=== PATIENT | male | born 1945 | race Caucasian/White ===

== ENCOUNTER → 2018-12-16 08:12 | Outpatient (CLI) | payer MEDICARE, OTHER ==
[~2018-12-16 08:12] MED LIST: ADALAT CC90 MG PO; BAYER CHEWABLE81 MG PO; COZAAR100 MG PO; FENOFIBRATE160 MG PO; HYDROCHLOROTHIA25 MG PO; LEVOTHYROXINE175 MCG PO; METOPROLOL TART50 MG PO; PAROXETINE HCL10 MG PO; PLAVIX75 MG PO
--- NOTE | 2018-12-23 11:18 | ST ---
PATIENT:JJ WASHINGTON MEDICAL RECORD: [id number] SEX: M LOCATION:[facility] ORDER #: ADMISSION DATE: 12/16/18 AGE OF PATIENT: 73 REFERRING PHYSICIAN: INTERPRETING PHYSICIAN: KATE SIDDIQI MD DATE OF SERVICE: 12/16/2018 PROCEDURE: Nuclear stress test. INDICATION: Angina, shortness of breath, hypertension and hyperlipidemia. He was exercised on standard Rom protocol for 7 minutes 30 seconds achieving greater than 85% max target heart rate response with 33 mCi of sestamibi injected at peak stress, 10 mCi were used previously for rest images. FINDINGS: Gated SPECT reveals preserved ejection fraction at 60% with decreased thickening and brightening throughout the inferior segments. SPECT imaging Cardiolite was used as a myocardial perfusion agent. There is a mixed perfusion defect inferiorly, partially fixed, partially reversible includes the basal, mid, apical inferior segments. There is reversibility throughout the entire defect. OVERALL IMPRESSION: 1. This is an abnormal nuclear stress test with a mixed perfusion defect, partially fixed, partially reversible throughout the inferior segments. 2. Gated SPECT reveals a preserved ejection fraction at 60% in this patient with ongoing symptomatology, the current scan does suggest the presence of hemodynamically significant coronary artery disease. We will proceed with coronary angiography as followup study. TRANSINT:[id number] Voice Confirmation ID: [id number] DOCUMENT ID: [id number] KATE SIDDIQI MD at 1118 CC: [id number] DICTATION DATE: 12/16/18 1633 FIRER ELECTRIC LOCOMOTIVE: 12/17/18 0514 DEP CLI 12/16/18 [place] [address]
[2018-12-24 08:29] VITALS: BMI 28.6
== END | disposition home or self-care (01) ==
LOC: D.HCCARDIO 08:12
DX: I20.9 Angina pectoris, unspecified (principal)

== ENCOUNTER 2018-12-24 08:02 | Outpatient (CLI) | payer MEDICARE, OTHER ==
[~2018-12-24] VITALS: Ht 180.3 cm; Wt 93.2 kg
--- NOTE | ~2018-12-24 | HEMODYNAMI ---
PATIENT:JJ WASHINGTON MEDICAL RECORD: [id number] : 43 LOCATION:[facility] ADMISSION DATE: 12/24/18 Generatedon:12/24/20189:59 Patient name: JJ WASHINGTON Patient #: [id number] SSN: : 1945 Date of study: 12/24/2018 Page: Of Hemodynamic Procedure Report Patient Data Patient Demographics Procedure consent was obtained First Name: JJ Gender: Male Last Name: FELIX : 1945 Patient #: [id number] Age: 73 year(s) Race: Unknown Additional ID: [id number] Contact details Address: [address] [place] [address] ROAD State: [place] City: [place] Zip code: [address] Past Medical History Allergies: No known allergies Admission Admission Data Admission Date: 12/24/2018 Admission Time: 8:02 Procedure Procedure Types Cath Procedure Diagnostic Procedure LHC LHC w/Coronaries FFR/IVUS Intra-Coronary IVUS Initial Sedation Charges Moderate Sedation up to 15 minutes PCI Procedure Coronary Stent Coronary Stent Initial x2 Procedure Description Procedure Date Procedure Date: 12/24/2018 Procedure Start Time: 9:35 Procedure End Time: 9:58 Procedure Staff Name Function Leobardo Yeung MD Performing Physician Tereza Rod RT Monitor Juan Royal RN Nurse Jose Luis Woods RN Stone Sandblaster Efrain Perez RT Scrub Procedure Data Cath Procedure Fluoroscopy Diagnostic fluoroscopy Total fluoroscopy Time: 4.4 time: 4.4 min min Diagnostic fluoroscopy Total fluoroscopy dose: 775 dose: 775 mGy mGy Contrast Material Contrast Material Type Amount (ml) Isovue 300 120 Entry Location Entry Primary Successful Side Size Upsize Upsize Entry Closure Succes sful Closure Location (Fr) 1 (Fr) 2 (Fr) Remarks Device Remarks Femoral Right 5 Fr 6 Fr Exoseal artery Short Estimated blood loss: 10 ml Diagnostic catheters Device Type Used For End Catheter Placement MULTIPACK Pigtail 5 Fr LV Angiography catheter MULTIPACK JL 4.0 5Fr Left Coronary catheter Angiography MULTIPACK 3DRC 5Fr Right Coronary catheter Angiography Procedure Complications No complications Procedure Medications Medication Administration Route Dosage Oxygen etCO2 Nasal cannula 2 l/min Lidocaine 2% added to field 20 Heparin Flush Bag added to field 2 bags (1000units/500ml NS) 0.9% NaCl I.V. 100 ml/hr Versed I.V. 1 mg Fentanyl I.V. 50 mcg Versed I.V. 1 mg Fentanyl I.V. 50 mcg 0.9% NaCl I.V. bolus 250 ml Heparin Bolus I.V. 4000 units Integrilin (Bolus I.V. 8.5 ml 2mg/ml) Plavix P.O. 600 mg Hemodynamics Rest Heart Rate: 52 (bpm) Snapshots Pre Cath Intra NCS Post Cath Vital Signs Time Heart Resp SPO2 etCO2 NIBP (mmHg) Rhythm Pain Sedation Rate (ipm) (%) (mmHg) Status Level (bpm) 9:12:17 54 25 98 39.8 144/74(122) SB 0 (11) 10(A) , No pain 9:16:37 53 11 95 44.4 124/63(96) SB 0 (11) 10(A) , No pain 9:20:45 50 11 93 41.4 90/56(76) SB 0 (11) 10(A) , No pain 9:24:53 48 10 94 42.8 93/54(81) SB 0 (11) 10(A) , No pain 9:29:02 47 10 95 42.9 91/53(74) SB 0 (11) 10(A) , No pain 9:33:14 43 11 95 45.9 88/40(63) SB 0 (11) 10(A) , No pain 9:37:24 48 14 95 39.8 81/42(60) SB 0 (11) 9(A) , No pain 9:41:30 46 13 93 39.8 82/47(72) SB 0 (11) 9(A) , No pain 9:45:38 45 14 94 36 77/44(65) SB 0 (11) 9(A) , No pain 9:49:46 46 12 93 39.1 79/37(72) SB 0 (11) 9(A) , No pain 9:53:53 47 14 94 40.6 85/50(0) SB 0 (11) 10(A) , No pain 9:58:01 46 9 94 40.6 89/49(68) SB 0 (11) 10(A) , No pain Medications Time Medication Route Dose Verified Delivered Reason Notes Effectiveness by by 9:10:44 Oxygen etCO2 2 Leoabrdo Kwabenaie used for Nasal l/min Gamal Royal RN procedure cannula 9:10:51 Lidocaine 2% added 20ml Leobardo Booth for local to vial Gamal Yeung MD anesthetic field 9:10:56 Heparin Flush added 2 Leobardo Leobardo used for Bag to bags Gamal Yeung MD procedure (1000units/500ml field NS) 9:11:04 0.9% NaCl I.V. 100 Leobardo Buffie Per physician ml/hr Gamal Royal RN 9:32:28 Versed I.V. 1 mg Leobardo Yuanie for sedation Gamal Royal RN 9:32:33 Fentanyl I.V. 50 Loebardo Buffie for sedation mcg Gamal Royal RN 9:36:51 Versed I.V. 1 mg Leobardo Yuanie for sedation Gamal Royal RN 9:36:55 Fentanyl I.V. 50 Leobardo Buffie for sedation mcg Gamal Royal RN 9:37:29 0.9% NaCl I.V. 250 Leobardo Yuanie Per physician bolus ml Gamal Royla RN 9:45:07 Heparin Bolus I.V. 4000 Leobardo Yuanie for units Gamal Royal RN anticoagulation 9:47:07 Integrilin I.V. 8.5 Leobardo Yuanie for (Bolus 2mg/ml) ml Gamal Royal RN antiplatelet therapy 9:57:38 Plavix P.O. 600 Leobardo Yuanie for mg Gamal Royal RN antiplatelet therapy Procedure Log Time Note 8:50:13 Time tracking: Regular hours (M-F 7:00 - 5:00) 8:50:16 Plan of Care:Hemodynamics will remain stable., Cardiac rhythm will remain stable., Comfort level will be maintained., Respiratory function will remain adequate., Patient/ family verbilizes understanding of procedure., Procedure tolerated without complication., Recovers from procedure without complications.. 9:00:12 Jose Luis oWods RN sent for patient. Start room use. 9:02:33 Patient received from Pre/Post Procedure Room to CCL 1 Alert and oriented. Tansferred to table in Supine position. 9:02:34 Warm blankets applied, and jer hugger turned on for patient comfort. 9:02:35 Correct patient and procedure confirmed by team. 9:02:37 Signed procedure consent form obtained from patient. 9:02:37 ECG and BP/O2 sat monitors applied to patient. 9:02:38 Full Disclosure recording started 9:10:44 Oxygen 2 l/min etCO2 Nasal cannula was administered by Juan Royal RN; used for procedure; 9:10:51 Lidocaine 2% 20ml vial added to field was administered by Leobardo Yeung MD; for local anesthetic; 9:10:56 Heparin Flush Bag (1000units/500ml NS) 2 bags added to field was administered by Leobardo Yeung MD; used for procedure; 9:11:03 Vital chart was started 9:11:04 0.9% NaCl 100 ml/hr I.V. was administered by Juan Royal RN; Per physician; 9:11:12 Rhythm: sinus bradycardia 9:11:30 H&P Date Dictated: 12/09/2018 Within 30 days and on chart., H&P Addendum completed by physician on day of procedure. (MUST COMPLETE FOR ALL OUTPATIENTS). 9:11:31 Pre-procedure instructions explained to patient. 9:11:32 Pre-op teaching completed and patient verbalized understanding. 9:11:34 Family in patients room. 9:11:35 Patient NPO since Midnight. 9:11:43 Patient allergic to No known allergies 9:11:45 Is the patient allergic to Iodine/contrast media? No. 9:11:48 Is patient on blood thinner?Yes 9:11:50 Patient diabetic? No. 9:13:38 Previous problem with sedation/anesthesia? No ? 9:13:39 Snore? Yes 9:13:40 Sleep apnea? No 9:13:41 Deviated septum? No 9:13:41 Opens mouth fully? Yes 9:13:42 Sticks out tongue? Yes 9:13:44 Airway obstruction? No ? 9:13:49 Dentures? Yes IN TIGHT 9:13:52 Pre procedure: right dorsailis pedis pulse 1+ Palpable, but thready & weak; easily obliterated 9:13:55 Modified Amrit's test Ulnar > 7 seconds. 9:13:57 Patient pain scale 0/10 ?. 9:14:09 IV patent on arrival in left forearm with 0.9% NaCl at [facility]. 9:14:11 Lab results completed and on chart. 9:14:14 Right groin area was prepped with chlora-prep and draped in sterile fashion 9:14:15 Alarms reviewed by R. N. 9:14:15 Sharps counted by scrub and verified by R.N. 9:16:27 Use device set Femoral Dx 9:16:28 ACIST Syringe (97882) opened to sterile field. 9:16:28 Bag Decanter (2002S) opened to sterile field. 9:16:29 Medline Cath Pack ([id number]) opened to sterile field. 9:16:29 DIAGNOSTIC WIRE .035 260cm J wire (919806) opened to sterile field. 9:16:31 ACIST Hand Control (39850) opened to sterile field. 9:16:31 ACIST Manifold (04172) opened to sterile field. 9:16:32 DIAGNOSTIC Multipack 5Fr catheter set (XZ1627) opened to sterile field. 9:16:32 Tegaderm 4 x 4 (1626W) opened to sterile field. 9:16:33 SHEATH 5FR Carpenter (MWG896) opened to sterile field. 9:16:58 Baseline sample Acquired. 9:24:17 Physician paged 9:25:27 Zero performed for pressure channel P1 9:25:30 Zero performed for pressure channel P1 9:25:33 Zero performed for pressure channel P1 9:25:36 Zero performed for pressure channel P1 9:31:50 Final Timeout: patient, procedure, and site verified with staff and physician. All members of the team are in agreement. 9:31:53 Right groin site verified by team. 9:31:57 Fire Safety Assessment: A--An alcohol-based skin anteseptic being used preoperatively., C--Open oxygen or nitrous oxide is being used., D--An ESU, laser, or fiber-optic light is being used. 9:32:01 Physical assessment completed. ASA score P 2 - A patient with mild systemic disease as per Leobardo Yeung MD. 9:32:04 Sedation plan: IV Moderate Sedation Medication:Versed, Fentanyl 9:32:28 Versed 1 mg I.V. was administered by Buffie Royal RN; for sedation; 9:32:33 Fentanyl 50 mcg I.V. was administered by Juan Royal RN; for sedation; 9:35:46 Procedure started. 9:35:54 Local anesthetic to right femoral artery with Lidocaine 2% by Leobardo Yeung MD.INITIAL ACCESS ONLY 9:36:32 A 5 Fr sheath was inserted into the Right Femoral artery 9:36:51 Versed 1 mg I.V. was administered by Juan Royal RN; for sedation; 9:36:55 Fentanyl 50 mcg I.V. was administered by Juan Royal RN; for sedation; 9:36:57 A MULTIPACK Pigtail 5 Fr catheter was advanced over the wire and used for LV Angiography. 9:37:06 LV gram done using HUNTER 9:37:11 Injector settings: Ml/sec: 10, Volume: 20, 9:37:24 EF : 60 % 9:37:25 Catheter removed. 9:37:29 0.9% NaCl 250 ml I.V. bolus was administered by Juan Royal RN; Per physician; 9:37:42 A MULTIPACK JL 4.0 5Fr catheter was advanced over the wire and used for Left Coronary Angiography. 9:39:22 Catheter removed. 9:39:39 A MULTIPACK 3DRC 5Fr catheter was advanced over the wire and used for Right Coronary Angiography. 9:39:46 Use device set [facility] 9:39:48 SHEATH 6FR Carpenter (NGF181) opened to sterile field. 9:39:51 INFLATOR Merit BasixCompak (AA2153) opened to sterile field. 9:39:55 CHOICE PT Extra Support 182cm wire ([id number]) opened to sterile field. 9:40:13 Catheter removed. 9:40:28 Sheath upsized to a 6 Fr Short. 9:41:52 Linefork [place] Eag[place] IVUS Catheter (42122W) opened to sterile field. 9:41:55 GUIDE 6FR XBLAD 3.5 catheter ([id number]) opened to sterile field. 9:42:05 6 Fr XBLAD 3.5 guide catheter was inserted over the wire 9:42:26 CHOICE PT ES wire advanced. 9:45:07 Heparin Bolus 4000 units I.V. was administered by Juan Royal RN; for anticoagulation; 9:45:13 IVUS catheter advanced over wire. 9:45:18 IVUS pass to Circ lesion performed. 9:45:20 IVUS catheter removed over wire. 9:47:07 Integrilin (Bolus 2mg/ml) 8.5 ml I.V. was administered by Juan Royal RN; for antiplatelet therapy; 9:47:33 Place stent Inflation Number: 1 A INTEGRITY RX 3.0 x 15 stent ([id number]) was prepped and advanced across the Prox CX. The stent was deployed at 13 AMALIA for 0:10 (min:sec). 9:47:53 Wire redirected to RAMUS. 9:47:59 Stent catheter was removed intact over wire. 9:49:36 Place stent Inflation Number: 1 A INTEGRITY RX 2.5 x 14 stent ([id number]) was prepped and advanced across the Ramus. The stent was deployed at 13 AMALIA for 0:10 (min:sec). 9:50:11 Inflation number: 2 The stent balloon was then re-inflated across the Ramus to 5 AMALIA for 0:08 (min:sec). 9:50:34 Stent catheter was removed intact over wire. 9:50:35 Wire removed. 9:50:35 Guide catheter removed. 9:50:42 Sheath removed intact; hemostasis achieved with Exoseal to the Right Femoral artery. 9:50:43 Procedure ended.(Physican Out) 9:51:10 Fluoroscopy time 04.40 minutes. 9:51:14 Flurop Dose total: 775 9:51:14 Fluoroscopy dose: 775 mGy 9:51:24 Contrast amount:Isovue 300 120ml. 9:51:25 Sharps counted by scrub and verified by R.N. 9:51:27 Insertion/operative site no bleeding no hematoma. 9:51:29 Post-op/insertion site Right Femoral artery dressed using a 4 x 4 and Tegaderm. 9:51:32 Post right femoral artery:stable, clean and dry 9:51:34 Post Procedure Pulses reassessed and unchanged 9:51:37 Post-procedure physical assessment completed. ASA score P 2 - A patient with mild systemic disease as per Leobardo Yeung MD. 9:51:39 Post procedure rhythm: unchanged. 9:51:47 Estimated blood loss: 10 ml 9:51:49 Post procedure instruction explained to patient.Patient verbalizes understanding. 9:51:49 Patient needs reinforcement of post procedure teaching. 9:51:55 Procedure Complication : No complications 9:52:34 Procedure type changed to Cath procedure, Diagnostic procedure, LHC, LHC w/Coronaries, FFR/IVUS, Intra-Coronary IVUS Initial, Sedation Charges, Moderate Sedation up to 15 minutes, PCI procedure, Coronary Stent, Coronary Stent Initial x2 9:52:49 See physician's report for complete and final results. 9:52:56 EXOSEAL 6Fr (EX600) opened to sterile field. 9:54:10 Procedure and supply charges have been captured, reviewed, submitted and are correct. 9:57:38 Plavix 600 mg P.O. was administered by Juan Royal RN; for antiplatelet therapy; 9:58:17 Vital chart was stopped 9:58:20 Report given to Pre/Post Procedure Room. 9:58:24 Patient transfered to Pre/Post Procedure Room with Stretcher. 9:58:33 Procedure ended. 9:58:33 Full Disclosure recording stopped 9:58:36 End room use (Document Last) Intervention Summary Intervention Notes Time ActionType Lesion and Equipment Action# Pressure Duration Attributes Used 9:47:33 Place stent Prox CX INTEGRITY RX 1 13 00:10 3.0 x 15 stent ([id number]) 9:49:36 Place stent Ramus INTEGRITY RX 1 13 00:10 2.5 x 14 stent ([id number]) 9:50:11 Reinflate Ramus INTEGRITY RX 2 5 00:09 stent 2.5 x 14 balloon stent ([id number]) Device Usage Item Name Manufacture Quantity Catalog Number Hospital Part Current Mini [facility] Lot# / Charge Number Stock Stock Serial# Code ACIST Acist 1 43052 704864 167162 982681 20 Syringe [employer]bucks (46337) Systems Inc Bag Decanter Microtek 1 752824 22398 189033 5 () Medical Inc. Medline Cath Medline 1 [id number] 113633 28521 146459 5 Pack ([id number]) DIAGNOSTIC [place] 1 765944 369163 516240 269293 30 WIRE .035 260cm J wire (159182) ACIST Hand Acist 1 17425 136502 593796 977222 5 Control Medical (19544) Systems Inc ACIST Acist 1 38303 557977 470725 612885 5 Manifold Medical (52061) Systems Inc DIAGNOSTIC Cardinal 1 NT8746 628616 92623 480912 30 Multipack Health 5Fr catheter set (EP0447) Tegaderm 4 x 3M 1 1626W 547707 408958 476652 5 4 (1626W) SHEATH 5FR Terumo 1 IQE938 201641 348942 648957 5 Carpenter (CTT343) MULTIPACK Cardinal 1 562142 5 Pigtail 5 Fr Health catheter MULTIPACK JL Cardinal 1 705986 5 4.0 5Fr Health catheter MULTIPACK Cardinal 1 013522 5 3DRC 5Fr Health catheter SHEATH 6FR Terumo 1 FFR159 046534 628513 883068 40 Carpenter (FAM190) INFLATOR Merit 1 NB0588 085101 252302 340958 15 [facility] Medical BasixCompak (IT7583) CHOICE PT [place] 1 [id number] 529561 373991 638987 5 Extra Scientific Support 182cm wire ([id number]) Linefork Linefork 1 57650H 994399 525019 939921 8 [place] Eag[place] IVUS Catheter (91557R) GUIDE 6FR Cardinal 1 [id number] 166510 415869 474341 10 XBLAD 3.5 Health catheter (16124940) INTEGRITY RX Medtronic 1 [id number] 307148 247688 986132 5 [id number] 3.0 x 15 stent ([id number]) INTEGRITY RX Medtronic 1 [id number] 659527 245142 883996 5 [id number] 2.5 x 14 stent ([id number]) EXOSEAL 6Fr Cardinal 1 EX600 513706 570946 356292 10 (EX600) Health Signature Audit [place] Stage Time Signature Unsigned Intra-Procedure 12/24/2018 Tereza 9:58:55 AM Counts RT(R) Signatures Monitor : Tereza Signature : Counts RT Date : Time : [facility] [address] [facility] [place] [address]
[2018-12-24] MEDS ORDERED: ADALAT CC90 MG PO (08:13)
[2018-12-24] MEDS ORDERED: METOPROLOL TART50 MG PO (08:13)
[2018-12-24] MEDS ORDERED: LEVOTHYROXINE175 MCG PO (08:13)
[2018-12-24] MEDS ORDERED: COZAAR100 MG PO (08:14)
[2018-12-24] MEDS ORDERED: HYDROCHLOROTHIA25 MG PO (08:14)
[2018-12-24] MEDS ORDERED: PAROXETINE HCL10 MG PO (08:15)
[2018-12-24] MEDS ORDERED: BAYER CHEWABLE81 MG PO (08:15)
[2018-12-24] MEDS ORDERED: FENOFIBRATE160 MG PO (08:16)
[2018-12-24 08:29] VITALS: BP 170/80; Ht 180.3 cm; Wt 93.2 kg
[2018-12-24 08:37] LABS: BASOPHILS 1.1 % (0-2); EOSINOPHILS 2.8 % (0-7); HEMATOCRIT 44.1 % (42.0-54.0); HEMOGLOBIN 14.7 g/dL (13.5-17.5); IMMATURE GRANULOCYTES 0.3 % (0-5); LYMPHOCYTES 18.6 % (15-50); MCH 30.1 pg (26.0-34.0); MCHC 33.3 g/dL (31.0-37.0); MCV 90.4 fL (80.0-100.0); MEAN PLATELET VOLUME 11.1 fL (7.4-10.4); MONOCYTES 12.5 % (2-11); NEUTROPHILS 64.7 % (40-80); PLATELET COUNT 200 10x3/uL (130-400); RBC 4.88 10x6/uL (4.20-6.10); RDW 13.5 % (11.5-14.5); WBC 6.5 10x3/uL (4.8-10.8)
[2018-12-24 08:55] LABS: ANION GAP 12.8 mmol/L (8-16); CALCIUM 9.5 mg/dL (8.5-10.1); CARBON DIOXIDE 29.3 mmol/L (21.0-32.0); CREATININE - SERUM 1.4 mg/dL (0.6-1.3); POTASSIUM - SERUM 4.1 mmol/L (3.5-5.1)
--- NOTE | 2018-12-24 10:00 | NUR ---
1000 RECIEVED TO ROOM VIA STRETCHER FROM BREEDER HEN SERVICE TECHNICIAN WITH 6 FR EXOSEAL R/GROIN CDI NO BLEEDING OR HEMATOMA NOTED. PATIENT CONNECTED TO MONITOR WITH HR 50 BP 173/77 CHEST PAIN IS DENIED. 1015 R/GROIN REMAINS CDI WITH NAUSEA DENIED. CALL LIGHT IS IN REACH AND IS AT BEDSIDE. INSTRUCTED PATIENT TO KEEP HEAD FLAT ON PILLOW WITH RLE STRAIGHT
[2018-12-24] MEDS ORDERED: PLAVIX75 MG PO (10:13)
--- NOTE | 2018-12-24 10:49 | NUR ---
RESTING QUIETLY WITH NO DISTRSS. 6 FR EXOSEAL R/GROIN IS CDI IS AT BEDSIDE NEEDS DENIED
--- NOTE | 2018-12-24 11:03 | NUR ---
PATIENT DENIED PAIN OR NEEDS AT THIS TIME. 6 FR EXOSEAL R/GROIN IS CDI WITH R/FOOT WARM TO TOUCH. PULSES PALPABLE
--- NOTE | 2018-12-24 11:14 | NUR ---
6 FR EXOSEAL R/GROIN REMAINS CDI WITH VSS. PATIENT TOLERATING SIPS OF WATER WITH NAUSEA DENIED
--- NOTE | 2018-12-24 11:28 | NUR ---
PATIENT RESTING QUEITLY WITH EYES CLOSED. VSS AND RESPIRATIONS UNLABORED.
--- NOTE | 2018-12-24 12:09 | NUR ---
PATIENT VOIDS 400 CC URINE TO COLLECTION. 6 FR EXOSEAL R/GROIN REMAINS CDI WITH CHEST PAIN DENIED
--- NOTE | 2018-12-24 12:30 | NUR ---
6 FR EXOSEAL R/GROIN IS CDI WITH CHEST PAIN DENIED. PATIENT DENIED NAUSEA SANDWICH AND SODA TO BEDSIDE WITH TO ASSIST
--- NOTE | 2018-12-24 13:02 | NUR ---
6 FR EXOSEAL R/GROIN IS CDI WITH CHEST PAIN DENIED. REPOSITIONED PATIENT TO HOB UP 30 FOR COMFORT
--- NOTE | 2018-12-24 13:48 | NUR ---
VERBAL AND WRITTEN DISCHARGE GONE OVER WITH PATIENT AND . PIV REMOVED WITH DRESSING APPLIED. PATIENT UP TO GET DRESSED FOR DISCHARGE HOME NO DISTRESS
--- NOTE | 2018-12-24 14:01 | NUR ---
PATIENT LEFT VIA WC TO PARKING FOR TRANSPORT HOME CHEST PAIN DENIED AND R/GROIN CDI
--- NOTE | 2018-12-24 15:29 | OP ---
PATIENT NAME: JJ WASHINGTON MEDICAL RECORD: [id number] :43 LOCATION:D.CAT ADMISSION DATE: SURGEON: KATE SIDDIQI MD DATE OF OPERATION: 12/24/2018 DATE OF SERVICE: 12/24/2018 PROCEDURES: 1. PTCA stent of left circumflex. 2. PTCA stent of ramus intermedius. 3. Intravascular ultrasound. 4. Left heart catheterization. 5. Selective coronary angiography. 6. Left ventriculogram. INDICATION: Chest pain compatible with angina and coronary artery disease. PROCEDURE PERFORMED: After informed consent was obtained and after a detailed description of risks, benefits as well as alternative therapies, the patient elected to proceed with angiogram and angioplasty. The right femoral area was prepped and draped in normal sterile fashion. Right femoral artery was cannulated via modified Seldinger technique with placement of 6-Mohawk sheath. All catheters exchanged through this sheath. FINDINGS: Left ventriculogram was performed in standard 30-degree HUNTER view, reveals good cardiac wall motion throughout all segments. Overall ejection fraction estimated at 60%. SELECTIVE CORONARY ANGIOGRAPHY: 1. Left anterior descending has no significant angiographic disease. 2. Left main has no significant disease. 3. There is a ramus intermedius with greater than 70% stenosis in the mid of this vessel. 4. The left circumflex itself has 70% stenosis in the proximal vessel confirmed by intravascular ultrasound. 5. The right coronary artery has moderate irregularities, but no flow-limiting stenosis. PTCA STENT OF THE LEFT CIRCUMFLEX AND RAMUS INTERMEDIUS: The left circumflex was addressed with a 3.0 x 15-mm Integrity and the ramus intermedius with a 2.5 x 14-mm Integrity. Result was 0% residual stenosis. OVERALL IMPRESSION: Successful percutaneous transluminal coronary angioplasty stent of the ramus intermedius and left circumflex, both going from greater than 70% initial stenosis to 0% residual. TRANSINT:[id number] Voice Confirmation ID: [id number] DOCUMENT ID: [id number] OPERATIVE REPORT [id number] JJ WASHINGTON JEFFREY MD at 1529 CC: [id number] DICTATION DATE: 12/24/18 0956 DEDICATED LOCAL TRUCK DRIVER: 12/24/18 1052 DEP CLI 12/24/18 [place] [id number]
== END 2018-12-24 14:02 | disposition home or self-care (01) ==
LOC: D.CATH 08:02
PROVIDERS: ATTEND Internal Medicine Interventional Cardiology
DX: I25.119 Atherosclerotic heart disease of native coronary artery with unspecified angina pectoris (principal); Z01.812 Encounter for preprocedural laboratory examination